=== PATIENT | female | born 1960 | race Caucasian/White ===

== ENCOUNTER 2016-08-07 21:07 | Emergency (ER) | payer SELFPAY ==
--- NOTE | 2016-08-07 21:32 | ER Document Report ---
ED Medical Screen (RME) - General Stated Complaint: CHEST PAIN Notes: Patient states she has been having intermittent chest pain all day, epigastric area is hurting, has nausea, and has a history of a gastric ulcer. Patient states she took (2) 150 mg Zantac which helped for only about 20 minutes. Zantac usually relieves the pain when her ulcer acts up. Pain is located under left breast. No other pain radiation. Patient has had a couple episodes of shortness of breath today. Father with DE at age 55 or 56. I have greeted and performed a rapid initial assessment of this patient. A comprehensive ED assessment and evaluation of the patient, analysis of test results and completion of the medical decision making process will be conducted by additional ED providers. TRAVEL OUTSIDE OF THE [place] IN LAST 30 DAYS: No - Related Data Allergies/Adverse Reactions: No Known Allergies Allergy (Verified 08/07/16 21:27) Past Medical History Neurological Medical History: Reports: Hx Migraine GI Medical History: Reports: Hx Gastroesophageal Reflux Disease, Hx Ulcer - gastric Past Surgical History: Reports: Hx Appendectomy - Immunizations Hx Diphtheria, Pertussis, Tetanus Vaccination: Yes Physical Exam - Vital signs Vitals: Temp Pulse Resp BP Pulse Ox 97.9 F 83 16 160/87 H 100 08/07/16 21:20 08/07/16 21:20 08/07/16 21:20 08/07/16 21:20 08/07/16 21:20 - Cardiovascular Rhythm: Regular Heart sounds: Normal auscultation Course - Vital Signs Vital signs: Temp Pulse Resp BP Pulse Ox 97.9 F 83 16 160/87 H 100 08/07/16 21:20 08/07/16 21:20 08/07/16 21:20 08/07/16 21:20 08/07/16 21:20
--- NOTE | 2016-08-07 21:59 | EKG REPORT ---
SEVERITY:- BORDERLINE ECG - SINUS RHYTHM PROBABLE LEFT ATRIAL ABNORMALITY : Confirmed by: Devorah Winter 07-Aug-2016 21:59:32
--- NOTE | 2016-08-07 23:13 | ER Document Report ---
ED General - General Chief Complaint: Chest Pain Stated Complaint: CHEST PAIN Notes: Patient is 56-year-old female presents with complaints of epigastric abdominal pain and recent or chest. She's had some nausea. She said she did vomit up some clear liquid. No blood or emesis. No blood in her stool. No black or tarry stools. Patient says she has a history of gastritis and ulcers. She says this pain feels exactly like her previous ulcer pain. She says that it's not atypical for her to have pain radiates into her chest from her epigastrium. She says the pain always starts in the epigastrium and radiates upwards. She denies any history of coronary disease. Her father did have MRIs. No she does smoke. She does not drink alcohol. She again says that this pain is exactly like her previous ulcer type pains. She says that she did take Zantac which initially helped but then the pain came back. No other complaints this time. TRAVEL OUTSIDE OF THE [place] IN LAST 30 DAYS: No - Related Data Allergies/Adverse Reactions: No Known Allergies Allergy (Verified 08/07/16 21:27) Past Medical History - Social History Smoking Status: Current Every Day Smoker Chew tobacco use (# tins/day): No Frequency of alcohol use: None Drug Abuse: None Family History: CAD, Other - RENAL FAILURE Neurological Medical History: Reports: Hx Migraine Renal/ Medical History: Denies: Hx Peritoneal Dialysis GI Medical History: Reports: Hx Gastroesophageal Reflux Disease, Hx Ulcer - gastric Past Surgical History: Reports: Hx Appendectomy - Immunizations Hx Diphtheria, Pertussis, Tetanus Vaccination: Yes Review of Systems - Review of Systems Notes: My Normal Review Basic REVIEW OF SYSTEMS: CONSTITUTIONAL : Denies fever, chills, or sweats. Denies recent illness. EENT: Denies eye, ear, throat, or mouth pain or symptoms. Denies nasal or sinus congestion. CARDIOVASCULAR: Pain radiating to chest from epigastric. RESPIRATORY: Denies cough, cold, or chest congestion. Denies shortness of breath, difficulty breathing, or wheezing. GASTROINTESTINAL: Epigastric abdominal pain. Vomiting 1 Denies constipation. Last BM: GENITOURINARY: Denies difficulty urinating, painful urination, burning, frequency, or blood in urine. FEMALE GENITOURINARY: Denies vaginal bleeding, abnormal or irregular periods. MUSCULOSKELETAL: Denies neck or back pain or joint pain or swelling. SKIN: Denies rash or skin lesions. HEMATOLOGIC : Denies easy bruising or bleeding. NEUROLOGICAL: Denies altered mental status or loss of consciousness. Denies headache. Denies weakness or paralysis or loss of use of either side. Denies problems with gait or speech. Denies sensory or motor loss. ALL OTHER SYSTEMS REVIEWED AND NEGATIVE. Physical Exam - Vital signs Vitals: Temp Pulse Resp BP Pulse Ox 97.9 F 83 16 160/87 H 100 08/07/16 21:20 08/07/16 21:20 08/07/16 21:20 08/07/16 21:20 08/07/16 21:20 - Notes Notes: General Appearance: Well nourished, alert, cooperative, no acute distress, mild to moderate obvious discomfort. Vitals: reviewed, See vital signs table. Head: no swelling or tenderness to the head Eyes: PERRL, EOMI, Conjuctiva clear Mouth: No decreasd moisture Neck: Supple, no neck tenderness, No thyromegaly Lungs: No wheezing, No rales, No rhonci, No accessory muscle use, good air exchange bilaterally. Heart: Normal rate, Regular rythm, No murmur, no rub Abdomen: Normal BS, soft, No rigidity, mild to moderate epigastric abdominal tenderness to palpation, No guarding, no rebound, no abdominal masses, no organomegaly Extremities: strength 5/5 in all extremities, good pulses in all extremities, no swelling or tenderness in the extremities, no edema. Skin: warm, dry, appropriate color, no rash Neuro: speech clear, oriented x 3, normal affect, responds appropriately to questions. Course - Vital Signs Vital signs: Temp Pulse Resp BP Pulse Ox 97.9 F 83 17 133/72 H 94 08/07/16 21:20 08/07/16 21:20 08/08/16 01:00 08/08/16 01:00 08/08/16 01:00 - Laboratory Result Diagrams: 08/07/16 23:32 08/07/16 23:32 Laboratory results interpreted by me: 08/07/16 08/07/16 23:32 23:32 Chloride 108 H Urine Ketones 20 H Urine Blood SMALL H Ur Leukocyte Esterase LARGE H - EKG Interpretation by Me Additional EKG results interpreted by me: 08/07/16 23:12 EKG is reviewed and interpreted by me. EKG shows normal sinus rhythm with a rate of [address] segment elevation or depression. No ischemic T wave inversions. ID interval is slightly prolonged. QRS duration and QTC intervals are within normal range. Old EKG for comparison is from 11/23/2015. - Transfer of Care Notes: 08/08/16 01:25 Patient is feeling much improved. Her pain resolved with the GI cocktail. Her nausea and vomiting resolved the Zofran. Patient did have some pain radiating into her chest; however, I think coronary disease is unlikely being that the patient has had this pain multiple times with her epigastric pain and it has been treated to her gastric ulcers in the past. Also her pain was completely resolved with a GI cocktail. Her EKG and cardiac enzymes are negative. She does have risk factors for heart disease including age and smoking and therefore informed her she should still have a outpatient stress test performed. I will refer her to dance hall host/hostess. I will also refer her to GI physician for possible upper GI endoscopy. She strongly encouraged return to ER if she has recurrence of chest pain, worsening abdominal pain, vomiting blood , or she feels unwell. Patient agrees with plan will be discharged home. Dictation of this chart was performed using voice recognition software; therefore, there may be some unintended grammatical errors. Discharge - Discharge Clinical Impression: Epigastric pain Condition: Good Disposition: HOME, SELF-CARE Instructions: Family Physicians / Practices Additional Instructions: ABDOMINAL PAIN: There are many causes of abdominal pain. Pain can mean a serious problem requiring surgery (such as appendicitis). It can also be an innocent problem that goes away on its own (such as a viral infection). Often, time must pass to determine the cause of pain. The physician does not feel that hospitalization is necessary, at present. Things may change within the next 24 hours. Call the doctor or come back for re- examination if any problems occur, such as: (1) Pain that becomes more severe, steady, or becomes concentrated in one specific area. Also, pain that is more severe with movement or coughing. (2) Vomiting that persists or becomes more frequent. (3) Blood in the vomitus, urine, or bowel movements. Blood in the stool may have a tarry or black appearance. (4) Shaking chills or fever greater than 100 degrees F. (5) The abdomen becomes more distended or swollen. (6) Bowel movements cease. (7) Failure to improve as expected. NORMAL EXAM AND WORKUP: At this time, your examination and workup show no significant abnormality. No significant abnormal physical findings are noted. All laboratory, EKG, and imaging (x-ray) studies that were ordered show no significant abnormality. Although your examination and all studies that were ordered showed no significant abnormal finding, there are no examinations and no studies that are 100% accurate. There is always the possibility that some abnormality could exist and not be detected with physical examination or within the limits and capabilities of laboratory and other studies. You should return or follow up as you were instructed on your visit today for further evaluation if your symptoms do not resolve. ANTINAUSEA MEDICATION: You have been given a medication to suppress nausea and vomiting. This type of medication can be given as a shot, pill, or suppository. It will usually last for many hours. Pills and shots usually last six to eight hours, suppositories last about 12 hours. For the typical illness, only one or two doses of the medication may be necessary. Mild lightheadedness may occur. This type of medicine can cause drowsiness. Do not drive or operate dangerous machinery while under its influence. Do not mix with alcohol. See your doctor at once if you have muscle spasms or tightness, or uncontrollable motions (particularly of the neck, mouth, or jaw). Persistent vomiting or severe lightheadedness should also be evaluated by the physician. FOLLOW-UP CARE: If you have been referred to a physician for follow-up care, call the physician s office for an appointment as you were instructed or within the next two days. If you experience worsening or a significant change in your symptoms, notify the physician immediately or return to the Emergency Department at any time for re-evaluation. Currently your EKG and heart enzymes were negative for any signs that your symptoms could be coming from your heart. You symptoms seem very consistent with your history of gastritis and gastric ulcers. This being said, it is still very important you return to the ER immediately if you have recurrence of chest pain, chest pain located in a different region other than just above your upper abdomen, or if you feel unwell. Please follow closely with your primary care doctor for reevaluation. I will also give you a referral to the GI physician due to history of gastric ulcers. I also recommend you talking to your doctor about possible outpatient cardiac stress testing due to your age and history of smoking. I will also refer you to a dance hall host/hostess for this. Once again it is extremely important that you return to ER if you have any recurrence of chest pain. Prescriptions: Ondansetron [Zofran Odt 4 mg Tablet] 1 tab PO Q4H PRN #10 tab.rapdis PRN Reason: For Nausea/Vomiting Sucralfate [Carafate 1 gm Tablet] 1 gm PO ACHS #120 tablet Forms: Return to Work Referrals: CASA ACE MD [ACTIVE STAFF] - Follow up in 3-5 days GEMA CRAFT MD [ACTIVE STAFF] - 08/10/16
[2016-08-07] MEDS ORDERED: METOCLOPRAMIDE HCL ORAL SOLN 10 MG/10 ML UDCUP PO ONE (23:39)
[2016-08-07] MEDS ORDERED: MAG HYDROX/AL HYDROX/SIMETH SUSP 30 ML UDCUP PO ONE (23:39)
[2016-08-07] MEDS ORDERED: LIDOCAINE 2% VISCOUS SOLN 20 ML UDCUP PO ONE (23:39)
[2016-08-07 23:53] LABS: ABSOLUTE BASOPHILS # (AUTO) 0.1 10^3/uL (0.0-0.2); ABSOLUTE EOSINOPHILS # (AUTO) 0.4 10^3/uL (0.0-0.6); ABSOLUTE LYMPHOCYTES (AUTO) 2.9 10^3/uL (0.5-4.7); ABSOLUTE MONOCYTES (AUTO) 0.8 10^3/uL (0.1-1.4); ABSOLUTE NEUT (AUTO) 5.8 10^3/uL (1.7-8.2); APPEARANCE,URINE SLIGHTLY-CLOUDY; BASOPHILS % (AUTO) 1.3 % (0-2); BILIRUBIN,URINE NEGATIVE (NEGATIVE); EOSINOPHILS % (AUTO) 3.7 % (0-6); GLUCOSE, URINE NEGATIVE (NEGATIVE); HEMATOCRIT 40.3 % (36.0-47.0); HEMOGLOBIN 13.5 g/dL (12.0-15.5); HGB HCT DIFFERENCE 0.2; KETONES,URINE 20 mg/dL (NEGATIVE); LEUKOCYTE ESTERASE,URINE LARGE (NEGATIVE); MEAN CORPUSCULAR HEMOGLOBIN 32.3 pg (27.0-33.4); MEAN CORPUSCULAR HGB CONC 33.5 g/dL (32.0-36.0); MEAN CORPUSCULAR VOLUME 96 fl (80-97); MONOCYTES % (AUTO) 7.9 % (3-13); NITRITE,URINE NEGATIVE (NEGATIVE); PROTEIN,URINE NEGATIVE (NEGATIVE); RED BLOOD COUNT 4.19 10^6/uL (3.72-5.28); RED CELL DISTRIBUTION WIDTH 13.5 % (11.5-14.0); SEGMENTED NEUTROPHILS % (AUTO) 58.1 % (42-78); URINE SPECIFIC GRAVITY 1.024; UROBILINOGEN,URINE NEGATIVE mg/dL (<2.0); WHITE BLOOD COUNT 9.9 10^3/uL (4.0-10.5)
[2016-08-08 00:08] LABS: ALANINE AMINOTRANSFERASE 18 U/L (9-52); ALBUMIN 4.2 g/dL (3.5-5.0); ALKALINE PHOSPHATASE 71 U/L (38-126); ANION GAP 14 (5-19); ASPARTATE AMINO TRANSFERASE 15 U/L (14-36); BILIRUBIN,DIRECT 0.2 mg/dL (0.0-0.4); BILIRUBIN,TOTAL 0.3 mg/dL (0.2-1.3); BLOOD UREA NITROGEN 15 mg/dL (7-20); CALCIUM 10.1 mg/dL (8.4-10.2); CARBON DIOXIDE 23 mmol/L (22-30); CHLORIDE 108 mmol/L (98-107); CREATINE KINASE 66 U/L (30-135); CREATININE RESULT 0.65 mg/dL (0.52-1.25); GLUCOSE 90 mg/dL (75-110); POTASSIUM 3.8 mmol/L (3.6-5.0); SODIUM 144.9 mmol/L (137-145); TOTAL PROTEIN 7.3 g/dL (6.3-8.2)
[2016-08-08 00:20] LABS: CREATINE KINASE MB 0.22 ng/mL (<4.55)
[2016-08-08 00:24] LABS: TROPONIN I < 0.012 ng/mL
[2016-08-08] MEDS ORDERED: ONDANSETRON HCL INJ/PF 4 MG/2 ML SDV IV ONE (00:33)
[2016-08-08] MEDS ORDERED: ONDANSETRON ODT 4 MG TAB (6 TAB/DSPK) PO PRN (01:25)
[2016-08-08 02:17] VITALS: BP 129/74
== END 2016-08-08 02:15 | disposition home or self-care (01) ==
LOC: ER 21:07
DX: R10.13 Epigastric pain (principal); R11.2 Nausea with vomiting, unspecified; R07.9 Chest pain, unspecified; Z87.19 Personal history of other diseases of the digestive system; F17.200 Nicotine dependence, unspecified, uncomplicated; Z82.49 Family history of ischemic heart disease and other diseases of the circulatory system; Z87.11 Personal history of peptic ulcer disease; Z90.49 Acquired absence of other specified parts of digestive tract
CPT/HCPCS: 93005; 99285; 36415; 82553; 82550; 85025; 80053; 81001; 84484; 71010; 93010; J3490; J2405

== ENCOUNTER 2017-01-11 23:08 | Emergency (ER) | payer SELFPAY ==
[2017-01-11] MEDS ORDERED: IBUPROFEN 600 MG TABLET PO ONE (23:43)
[2017-01-11] MEDS ORDERED: ACETAMINOPHEN 325 MG TABLET PO ONE (23:43)
[2017-01-11] MEDS ORDERED: LIDOCAINE 5% (700 MG) TRANSDERMAL ADH..PATCH TP ONE (23:43)
--- NOTE | 2017-01-11 23:45 | ER Document Report ---
ED General - General Chief Complaint: Abdominal Pain Stated Complaint: ABDOMINAL PAIN Time Seen by Provider: 01/11/17 23:26 Notes: Patient is a 56 year old female without past medical history who presents with 3 days of left lower rib pain. Does describe it as a constant, stabbing, throbbing pain that is worsened by movement. States it started after she picked up a heavy suitcase 3 days ago. No history of similar injuries in the past. She has not tried heat and treat her pain. She has not seen her primary care doctor regarding today's concerns. She denies any associated dysuria, hematuria, focal abdominal pain, vomiting, diarrhea, chest pain or shortness of breath. No history of DVT or pulmonary embolus. She denies any pleuritic pain. She does not use estrogen of any kind. TRAVEL OUTSIDE OF THE [place] IN LAST 30 DAYS: No - Related Data Allergies/Adverse Reactions: No Known Allergies Allergy (Verified 08/07/16 21:27) Past Medical History - General Information source: Patient - Social History Smoking Status: Never Smoker Frequency of alcohol use: None Drug Abuse: None Family History: CAD, Other - RENAL FAILURE Patient has suicidal ideation: No Patient has homicidal ideation: No Neurological Medical History: Reports: Hx Migraine Renal/ Medical History: Denies: Hx Peritoneal Dialysis GI Medical History: Reports: Hx Gastroesophageal Reflux Disease, Hx Ulcer - gastric Past Surgical History: Reports: Hx Appendectomy - Immunizations Hx Diphtheria, Pertussis, Tetanus Vaccination: Yes Review of Systems - Review of Systems Notes: Constitutional: Negative for fever. HENT: Negative for sore throat. Eyes: Negative for visual changes. Cardiovascular: Negative for chest pain. Respiratory: Negative for shortness of breath. Gastrointestinal: Negative for abdominal pain, vomiting or diarrhea. Genitourinary: Negative for dysuria. Musculoskeletal: Positive for left lower rib pain Skin: Negative for rash. Neurological: Negative for headaches, weakness or numbness. 10 point ROS negative except as marked above and in HPI. Physical Exam - Vital signs Vitals: Temp Pulse Resp BP Pulse Ox 97.7 F 75 18 151/78 H 97 01/11/17 23:13 01/11/17 23:13 01/11/17 23:13 01/11/17 23:13 01/11/17 23:13 Interpretation: Hypertensive Notes: PHYSICAL EXAMINATION: GENERAL: Well-appearing, well-nourished and in no acute distress. HEAD: Atraumatic, normocephalic. EYES: Pupils equal round and reactive to light, extraocular movements intact, sclera anicteric, conjunctiva are normal. ENT: nares patent, oropharynx clear without exudates. Moist mucous membranes. NECK: Normal range of motion, supple without lymphadenopathy LUNGS: Breath sounds clear to auscultation bilaterally and equal. No wheezes rales or rhonchi. HEART: Regular rate and rhythm without murmurs Chest wall: Pain on palpation of the left lower ribs along the lateral and posterior aspect of the rib cage ABDOMEN: Soft, nontender, normoactive bowel sounds. No guarding, no rebound. No masses appreciated. Mild bilateral CVA tenderness. EXTREMITIES: Normal range of motion, no pitting or edema. No cyanosis. NEUROLOGICAL: No focal neurological deficits. Moves all extremities spontaneously and on command. PSYCH: Normal mood, normal affect. SKIN: Warm, Dry, normal turgor, no rashes or lesions noted. Course - Re-evaluation Re-evalutation: 01/11/17 23:44 Patient presents with 4 days of focal left lower rib pain. The pain is worsened by movement. He does also reproduce on exam by direct palpation. Patient states that this did start after she lifted a heavy suitcase. She has absolutely no abdominal tenderness and denies any symptoms to suggest an acute intra-abdominal pathology. No right lower quadrant, right upper quadrant or left lower quadrant tenderness. No rebound or guarding. She denies any pleuritic pain, hemoptysis, use of estrogen, or history of DVT or pulmonary embolus. Her well's score is 0. I do not believe her clinical history is consistent with a acute pulmonary embolus and do not believe I should pursue a d -dimer test or CTA of the chest at this time. Will obtain a chest x-ray, urinalysis given the patient does have some mild bilateral flank tenderness on palpation and pyelonephritis could also give this presentation. 01/12/17 01:04 Patient has had complete resolution of her pain after application of a lidocaine patch and providing ibuprofen. Her urinalysis does show findings of possible pyelonephritis although is contaminated. A urine culture has been sent. She will be started on cephalexin for 7 day course. Will also prescribe Lidoderm patches and I have recommended Tylenol and ibuprofen for pain control. At this time will discharge with return precautions and follow-up recommendations. Verbal discharge instructions given a the bedside and opportunity for questions given. Medication warnings reviewed. Patient is in agreement with this plan and has verbalized understanding of return precautions and the need for primary care follow-up in the next 24-72 hours. - Vital Signs Vital signs: Temp Pulse Resp BP Pulse Ox 97.9 F 72 16 140/76 H 98 01/12/17 01:35 01/12/17 01:35 01/12/17 01:35 01/12/17 01:35 01/12/17 01:35 - Laboratory Laboratory results interpreted by me: 01/11/17 23:50 Urine Blood SMALL H Ur Leukocyte Esterase LARGE H - Diagnostic Test Radiology reviewed: Image reviewed, Reports reviewed Radiology results interpreted by me: 01/12/17 01:04 Chest x-ray: No acute infiltrate or pneumothorax Discharge - Discharge Clinical Impression: Rib pain Urinary tract infection Qualifiers: Urinary tract infection type: site unspecified Hematuria presence: without hematuria Qualified Code(s): N39.0 - Urinary tract infection, site not specified Condition: Good Disposition: HOME, SELF-CARE Additional Instructions: Your pain is likely coming from musculoskeletal strain in your lower left ribs. However, your urine does show findings consistent with a urinary tract infection so you are also been started on antibiotics as this could also be contributing to the pain in your flanks. For your pain: Take ibuprofen 600 mg and acetaminophen 1000 mg every 6 hours together as needed for pain. You can also apply over the counter lidocaine to the affected areas. Return if you develop shortness of breath, worsening pain, fever greater than 101F, persistent vomiting, or any other symptoms that are worrisome to you. Prescriptions: Cephalexin Monohydrate [Keflex 500 mg Capsule] 500 mg PO QID #28 capsule Lidocaine [Lidoderm 5% (700 mg) Transdermal Patch] 1 patch TP DAILY #10 adh..patch
[2017-01-12 00:14] LABS: APPEARANCE,URINE SLIGHTLY-CLOUDY; BILIRUBIN,URINE NEGATIVE (NEGATIVE); GLUCOSE, URINE NEGATIVE (NEGATIVE); KETONES,URINE NEGATIVE (NEGATIVE); LEUKOCYTE ESTERASE,URINE LARGE (NEGATIVE); NITRITE,URINE NEGATIVE (NEGATIVE); PROTEIN,URINE NEGATIVE (NEGATIVE); URINE SPECIFIC GRAVITY 1.012; UROBILINOGEN,URINE NEGATIVE mg/dL (<2.0)
[2017-01-12] MEDS ORDERED: CEPHALEXIN 500 MG CAPSULE PO ONE (00:29)
--- NOTE | 2017-01-12 00:57 | RADIOLOGY REPORT (SQ) ---
EXAM DESCRIPTION: CHEST PA/LAT COMPLETED DATE/TIME: 01/12/2017 12:31 am REASON FOR STUDY: sob, left lower rib pain COMPARISON: Chest x-ray 08/07/2016. EXAM PARAMETERS: NUMBER OF VIEWS: two views TECHNIQUE: Digital Frontal and Lateral radiographic views of the chest acquired. RADIATION DOSE: NA LIMITATIONS: none FINDINGS: LUNGS AND PLEURA: No consolidation, pneumothorax or pleural effusion. MEDIASTINUM AND HILAR STRUCTURES: No masses or contour abnormalities. HEART AND VASCULAR STRUCTURES: Heart normal size. No evidence for failure. BONES: There is thoracolumbar scoliosis. HARDWARE: None in the chest. IMPRESSION: No acute radiographic finding in the chest. TECHNICAL DOCUMENTATION: JOB ID: [id number] [employer]- All Rights Reserved
[2017-01-12 01:36] VITALS: BP 140/76
== END 2017-01-12 01:37 | disposition home or self-care (01) ==
LOC: ER 23:08
DX: R07.81 Pleurodynia (principal); X50.0XXA Overexertion from strenuous movement or load, initial encounter; N39.0 Urinary tract infection, site not specified
CPT/HCPCS: 36415; 71020; 81001; 87086; 99284

== ENCOUNTER 2017-02-01 20:29 | Emergency (ER) | payer SELFPAY ==
--- NOTE | 2017-02-01 23:32 | ER Document Report ---
ED GI/ - General Mode of Arrival: Ambulatory Information source: Patient TRAVEL OUTSIDE OF THE [place] IN LAST 30 DAYS: No - HPI Patient complains to provider of: Abdominal pain Associated symptoms: Nausea, Other - headache <LULA ORONA - Last Filed: 02/02/17 00:40> <ARTURODESIRE - Last Filed: 02/02/17 01:24> - General Chief Complaint: GERD Stated Complaint: ABDOMINAL PAIN Time Seen by Provider: 02/01/17 23:23 Notes: Patient is a 56 year old female presenting to the emergency department for abdominal pain onset yesterday. Patient states she has a history of GERD and has been taking her Zantac with no relief. Patient also complains of nausea and headache. Patient does not take any other medications for her GERD. Patient states her abdominal pain is in her epigastric region. Patient has been seen previously in this facility and had had previous diagnoses of UTIs. (LULA ORONA) - Related Data Allergies/Adverse Reactions: No Known Allergies Allergy (Verified 08/07/16 21:27) Past Medical History - General Information source: Patient - Social History Smoking Status: Current Every Day Smoker Cigarette use (# per day): Yes - 1/2 ppd Chew tobacco use (# tins/day): No Smoking Education Provided: Yes Frequency of alcohol use: None Drug Abuse: None Family History: CAD, Other - RENAL FAILURE Patient has suicidal ideation: No Patient has homicidal ideation: No Neurological Medical History: Reports: Hx Migraine GI Medical History: Reports: Hx Gastroesophageal Reflux Disease, Hx Ulcer - gastric Past Surgical History: Reports: Hx Appendectomy - Immunizations Hx Diphtheria, Pertussis, Tetanus Vaccination: Yes <LULA ORONA - Last Filed: 02/02/17 00:40> Review of Systems - Review of Systems Constitutional: No symptoms reported EENT: No symptoms reported Cardiovascular: No symptoms reported Respiratory: No symptoms reported Gastrointestinal: See HPI, Abdominal pain, Nausea Genitourinary: No symptoms reported Female Genitourinary: No symptoms reported Musculoskeletal: No symptoms reported Skin: No symptoms reported Hematologic/Lymphatic: No symptoms reported Neurological/Psychological: See HPI, Headaches -: Yes All other systems reviewed and negative <LULA ORONA - Last Filed: 02/02/17 00:40> Physical Exam - Vital signs Interpretation: Normal <LULA ORONA - Last Filed: 02/02/17 00:40> <DESIRE MORRIS - Last Filed: 02/02/17 01:24> - Vital signs Vitals: Temp Pulse Resp BP Pulse Ox 97.4 F 90 18 110/86 H 99 02/01/17 20:51 02/01/17 20:51 02/01/17 20:51 02/01/17 20:51 02/01/17 20:51 - Notes Notes: GENERAL: Alert, interacts well, sleeping but easily arousable. Mild distress. HEAD: Normocephalic, atraumatic. EYES: Appear normal. Pupils equal, round, and reactive to light. ENT: Moist mucus membranes, tongue midline. NECK: Full range of motion. Supple. Trachea midline. LUNGS: Coarse lung sounds, no wheezes, rales, or rhonchi. No respiratory distress. HEART: Regular rate and rhythm. No murmurs, gallops, or rubs. ABDOMEN: Soft, epigastric tenderness with palpation. Non-distended. Normal bowel sounds. EXTREMITIES: Moves all 4 extremities spontaneously. Normal strength. No edema. NEUROLOGICAL: Alert and oriented x3. Normal speech. No focal neurological deficits. GCS 15. PSYCH: Normal affect, normal mood. SKIN: Warm, dry, normal turgor. No rashes or lesions noted. (LULA ORONA) Course - Laboratory Result Diagrams: 02/01/17 23:35 02/01/17 23:35 <LULA ORONA - Last Filed: 02/02/17 00:40> - Laboratory Result Diagrams: 02/01/17 23:35 02/01/17 23:35 <DESIRE MORRIS - Last Filed: 02/02/17 01:24> - Re-evaluation Re-evalutation: 02/02/17 01:19 The patient reports that her epigastric abdominal pain is much better after GI cocktail. Laboratory workup is unremarkable other than a urine showing large ketones, 131 WBCs and 1+ bacteria with large leukocyte esterase. On 01/11/2017 the patient had a similar appearing urine that was cultured and had no growth reported. For this reason antibiotics will not be given at this time. The urine will be cultured. She is encouraged to add Prilosec OTC, bland diet, elevate head of the bed, antiacids as needed for discomfort. (DESIRE MORRIS) - Vital Signs Vital signs: Temp Pulse Resp BP Pulse Ox 97.4 F 90 18 110/86 H 99 02/01/17 20:51 02/01/17 20:51 02/01/17 20:51 02/01/17 20:51 02/01/17 20:51 - Laboratory Laboratory results interpreted by me: 02/01/17 02/02/17 23:35 00:30 Carbon Dioxide 19 L Urine Protein 30 H Urine Ketones 80 H Urine Blood SMALL H Ur Leukocyte Esterase LARGE H Discharge <LULA ORONA - Last Filed: 02/02/17 00:40> <DESIRE MORRIS - Last Filed: 02/02/17 01:24> - Discharge Clinical Impression: Pyuria Gastroesophageal reflux disease Qualifiers: Esophagitis presence: esophagitis presence not specified Qualified Code(s): K21.9 - Gastro-esophageal reflux disease without esophagitis Condition: Stable Disposition: HOME, SELF-CARE Additional Instructions: Reflux Disease (GERD): Gastro-Esophageal Reflux Disease (GERD) is caused by stomach acid refluxing back up into the esophagus. The valve at the end of the esophagus may be weak. This is common in persons with a hiatal hernia. GERD symptoms can include indigestion, chest pain, heartburn, or food "sticking." Certain foods, alcohol, and aspirin can make GERD worse. Treatment depends on the severity. Usually, antacids or acid-suppressing medicines are used. When the esophagus is acutely inflamed, the physician will often prescribe membrane-protective drugs such as Carafate. Some patients benefit from medication such as Reglan that tightens the valve at the top of the stomach. Avoid those foods that bring on your symptoms. For many people, these foods are coffee, chocolate, onions, garlic, and carbonated drinks. Don't use alcohol, aspirin, caffeine, or tobacco. Don't eat late at night -- within 4 hours of bedtime. Don't over-eat. If necessary, elevate the head of your bed about 4 inches so that stomach acid will not roll up into your esophagus. Call the doctor if you develop severe chest pain, inability to swallow fluids, fever, or worsening symptoms. //////////////////////////////////////////////////////////////////////////////// //////////////////////////////////////////////////////////////////////////////// ////////////////// Eat a bland diet. Take the generic version of Prilosec OTC on a daily basis. Take antacids between meals and at bedtime. Elevate the head of your bed. Do not eat late in the evening or within a few hours of laying down. Your urine had quite a lot of pus cells in it suggesting urinary tract infection. 3 weeks ago you had a similar appearing urine that had no growth on the culture, so this urine will be cultured and decisional antibiotics will be made after the culture results come back. Be sure the hospital has a good contact number for you in case the culture indicates that you need to take an antibiotic. Follow-up with local medical doctor if not improving. RETURN TO THE EMERGENCY ROOM IF ANY NEW OR WORSENING SYMPTOMS. Scribe Attestation: 02/02/17 01:24 I personally performed the services described in the documentation, reviewed and edited the documentation which was dictated to the scribe in my presence, and it accurately records my words and actions. (DESIRE MORRIS) Scribe Documentation - Scribe Written by Florentino:: Florentino Beard 02/02/2017 00:35 acting as scribe for :: Arturo <LULA ORONA - Last Filed: 02/02/17 00:40>
[2017-02-01] MEDS ORDERED: LIDOCAINE 2% VISCOUS SOLN 20 ML UDCUP PO ONE (23:33)
[2017-02-01] MEDS ORDERED: MAG HYDROX/AL HYDROX/SIMETH SUSP 30 ML UDCUP PO ONE (23:33)
[2017-02-01 23:50] LABS: ABSOLUTE BASOPHILS # (AUTO) 0.1 10^3/uL (0.0-0.2); ABSOLUTE EOSINOPHILS # (AUTO) 0.3 10^3/uL (0.0-0.6); ABSOLUTE LYMPHOCYTES (AUTO) 2.3 10^3/uL (0.5-4.7); ABSOLUTE MONOCYTES (AUTO) 0.8 10^3/uL (0.1-1.4); ABSOLUTE NEUT (AUTO) 5.4 10^3/uL (1.7-8.2); BASOPHILS % (AUTO) 1.3 % (0-2); EOSINOPHILS % (AUTO) 3.3 % (0-6); HEMATOCRIT 38.7 % (36.0-47.0); HEMOGLOBIN 13.2 g/dL (12.0-15.5); HGB HCT DIFFERENCE 0.9; LYMPHOCYTES % (AUTO) 25.9 % (13-45); MEAN CORPUSCULAR HGB CONC 34.2 g/dL (32.0-36.0); MEAN CORPUSCULAR VOLUME 96 fl (80-97); RED BLOOD COUNT 4.01 10^6/uL (3.72-5.28); SEGMENTED NEUTROPHILS % (AUTO) 60.5 % (42-78); WHITE BLOOD COUNT 8.8 10^3/uL (4.0-10.5)
[2017-02-01 23:57] LABS: ALANINE AMINOTRANSFERASE 18 U/L (9-52); ALBUMIN 4.1 g/dL (3.5-5.0); ALKALINE PHOSPHATASE 63 U/L (38-126); ANION GAP 15 (5-19); ASPARTATE AMINO TRANSFERASE 18 U/L (14-36); BILIRUBIN,DIRECT 0.4 mg/dL (0.0-0.4); BILIRUBIN,TOTAL 0.4 mg/dL (0.2-1.3); BLOOD UREA NITROGEN 20 mg/dL (7-20); CALCIUM 9.8 mg/dL (8.4-10.2); CARBON DIOXIDE 19 mmol/L (22-30); CHLORIDE 107 mmol/L (98-107); CREATININE RESULT 0.76 mg/dL (0.52-1.25); GLUCOSE 95 mg/dL (75-110); SODIUM 141.2 mmol/L (137-145)
[2017-02-01 23:58] LABS: POTASSIUM 3.8 mmol/L (3.6-5.0)
[2017-02-02 00:18] LABS: ADD ON TESTING BLD IN LAB ACKNOWLEDGE
[2017-02-02 00:38] LABS: LIPASE 146.4 U/L (23-300)
[2017-02-02 00:49] LABS: APPEARANCE,URINE CLOUDY; BILIRUBIN,URINE NEGATIVE (NEGATIVE); GLUCOSE, URINE NEGATIVE (NEGATIVE); KETONES,URINE 80 mg/dL (NEGATIVE); LEUKOCYTE ESTERASE,URINE LARGE (NEGATIVE); NITRITE,URINE NEGATIVE (NEGATIVE); PROTEIN,URINE 30 mg/dL (NEGATIVE); URINE SPECIFIC GRAVITY 1.023; UROBILINOGEN,URINE NEGATIVE mg/dL (<2.0)
[2017-02-02 01:23] VITALS: BP 112/68
== END 2017-02-02 01:22 | disposition home or self-care (01) ==
LOC: ER 20:29
DX: N39.0 Urinary tract infection, site not specified (principal); K21.9 Gastro-esophageal reflux disease without esophagitis; Z79.899 Other long term (current) drug therapy; R11.0 Nausea; R51 Headache; F17.210 Nicotine dependence, cigarettes, uncomplicated
CPT/HCPCS: 99284; 36415; 87086; 83690; 85025; 87088; 80053; 81001; J3490

== ENCOUNTER 2017-08-29 01:11 | Emergency (ER) | payer SELFPAY ==
[2017-08-29] MEDS ORDERED: MAG HYDROX/AL HYDROX/SIMETH SUSP 30 ML UDCUP PO ONE (01:43)
[2017-08-29] MEDS ORDERED: METOCLOPRAMIDE HCL ORAL SOLN 10 MG/10 ML UDCUP PO ONE (01:43)
[2017-08-29] MEDS ORDERED: LIDOCAINE 2% VISCOUS SOLN 20 ML UDCUP PO ONE (01:43)
[2017-08-29] MEDS ORDERED: FAMOTIDINE 20 MG TABLET PO ONE (01:43)
--- NOTE | 2017-08-29 01:44 | ER Document Report ---
ED General - General Chief Complaint: Abdominal Pain Stated Complaint: ABDOMINAL CRAMPS Time Seen by Provider: 08/29/17 01:17 Notes: Patient is a 57-year-old female with a past medical history of recurrent abdominal pain, gastritis, prior appendectomy who presents with 6 hours of generalized abdominal discomfort and cramping with associated nausea and vomiting. Patient states that her symptoms started shortly after eating but she is only 1 sick. She notes that nothing seems to improve or worsen her symptoms since they have started. She has a history of similar sometimes many times to her gastritis per her report. She denies any diarrhea, fever, dysuria or flank tenderness. She has not seen her primary doctor regarding today's concerns. TRAVEL OUTSIDE OF THE [place] IN LAST 30 DAYS: No - HPI Onset: Just prior to arrival Onset/Duration: Gradual Quality of pain: Cramping Severity: Moderate Pain Level: 2 Associated symptoms: Vomiting Exacerbated by: Denies Relieved by: Denies Similar symptoms previously: Yes Recently seen / treated by doctor: No - Related Data Allergies/Adverse Reactions: No Known Allergies Allergy (Verified 08/07/16 21:27) Past Medical History - General Information source: Patient - Social History Smoking Status: Current Every Day Smoker Chew tobacco use (# tins/day): No Frequency of alcohol use: None Drug Abuse: None Lives with: Alone Family History: CAD, Other - RENAL FAILURE Patient has suicidal ideation: No Patient has homicidal ideation: No Neurological Medical History: Reports: Hx Migraine Renal/ Medical History: Denies: Hx Peritoneal Dialysis GI Medical History: Reports: Hx Gastroesophageal Reflux Disease, Hx Ulcer - gastric Past Surgical History: Reports: Hx Appendectomy - Immunizations Hx Diphtheria, Pertussis, Tetanus Vaccination: Yes Review of Systems - Review of Systems Notes: Constitutional: Negative for fever. HENT: Negative for sore throat. Eyes: Negative for visual changes. Cardiovascular: Negative for chest pain. Respiratory: Negative for shortness of breath. Gastrointestinal: Positive for abdominal pain and vomiting Genitourinary: Negative for dysuria. Musculoskeletal: Negative for back pain. Skin: Negative for rash. Neurological: Negative for headaches, weakness or numbness. 10 point ROS negative except as marked above and in HPI. Physical Exam - Vital signs Vitals: Temp Pulse Resp BP Pulse Ox 97.3 F 66 16 152/80 H 100 08/29/17 01:23 08/29/17 01:23 08/29/17 01:23 08/29/17 01:23 08/29/17 01:23 Interpretation: Hypertensive Notes: PHYSICAL EXAMINATION: GENERAL: Well-appearing, well-nourished and in no acute distress. HEAD: Atraumatic, normocephalic. EYES: Pupils equal round and reactive to light, extraocular movements intact, sclera anicteric, conjunctiva are normal. ENT: nares patent, oropharynx clear without exudates. Moist mucous membranes. NECK: Normal range of motion, supple without lymphadenopathy LUNGS: Breath sounds clear to auscultation bilaterally and equal. No wheezes rales or rhonchi. HEART: Regular rate and rhythm without murmurs ABDOMEN: Soft, nontender, normoactive bowel sounds. No guarding, no rebound. No masses appreciated. EXTREMITIES: Normal range of motion, no pitting or edema. No cyanosis. NEUROLOGICAL: No focal neurological deficits. Moves all extremities spontaneously and on command. PSYCH: Normal mood, normal affect. SKIN: Warm, Dry, normal turgor, no rashes or lesions noted. Course - Re-evaluation Re-evalutation: 08/29/17 01:43 Patient presents with epigastric abdominal pain with associated reflux symptoms most consistent with likely gastritis. Patient has no focal abdominal tenderness on examination. Lipase is normal. No LFT changes. Based on history and exam, I do not suspect ACS, pulmonary embolus, SBO, mesenteric ischemia, acute pancreatitis, biliary pathology, or an abdominal aortic dissection. Patient has had improvement of symptoms here with a GI cocktail. At this time will discharge with return precautions and follow-up recommendations. Verbal discharge instructions given a the bedside and opportunity for questions given. Medication warnings reviewed. Patient is in agreement with this plan and has verbalized understanding of return precautions and the need for primary care follow-up in the next 24-72 hours. - Vital Signs Vital signs: Temp Pulse Resp BP Pulse Ox 97.3 F 66 16 152/80 H 100 08/29/17 01:23 08/29/17 01:23 08/29/17 01:23 08/29/17 01:23 08/29/17 01:23 - Laboratory Result Diagrams: 08/29/17 01:30 08/29/17 01:30 Laboratory results interpreted by me: 08/29/17 08/29/17 08/29/17 01:30 01:30 01:30 RDW 14.1 H Seg Neutrophils % 40.8 L Monocytes % 14.8 H Eosinophils % 8.7 H Basophils % 2.3 H Sodium 149.1 H Chloride 111 H Total Bilirubin < 0.1 L Urine Blood SMALL H Discharge - Discharge Clinical Impression: Abdominal cramping Nausea and vomiting Qualifiers: Vomiting type: unspecified Vomiting Intractability: non-intractable Qualified Code(s): R11.2 - Nausea with vomiting, unspecified Condition: Good Disposition: HOME, SELF-CARE Additional Instructions: You have been seen in the Emergency Department (ED) for abdominal pain. Your evaluation did not identify a clear cause of your symptoms but was generally reassuring. Please follow up with your doctor as soon as possible regarding today's emergent visit and the symptoms that are bothering you. Return to the ED if your abdominal pain worsens or fails to improve, you develop bloody vomiting, bloody diarrhea, you are unable to tolerate fluids due to vomiting, fever greater than 101, or other symptoms that concern you. Prescriptions: Famotidine 40 mg PO BID #60 tablet
[2017-08-29 01:56] LABS: ABSOLUTE BASOPHILS # (AUTO) 0.1 10^3/uL (0.0-0.2); ABSOLUTE EOSINOPHILS # (AUTO) 0.5 10^3/uL (0.0-0.6); ABSOLUTE LYMPHOCYTES (AUTO) 1.9 10^3/uL (0.5-4.7); ABSOLUTE MONOCYTES (AUTO) 0.8 10^3/uL (0.1-1.4); ABSOLUTE NEUT (AUTO) 2.3 10^3/uL (1.7-8.2); BASOPHILS % (AUTO) 2.3 % (0-2); EOSINOPHILS % (AUTO) 8.7 % (0-6); HEMATOCRIT 37.4 % (36.0-47.0); HEMOGLOBIN 12.6 g/dL (12.0-15.5); LYMPHOCYTES % (AUTO) 33.4 % (13-45); MEAN CORPUSCULAR HEMOGLOBIN 32.7 pg (27.0-33.4); MEAN CORPUSCULAR HGB CONC 33.8 g/dL (32.0-36.0); MEAN CORPUSCULAR VOLUME 97 fl (80-97); MONOCYTES % (AUTO) 14.8 % (3-13); PLATELET COUNT 252 10^3/uL (150-450); RED BLOOD COUNT 3.87 10^6/uL (3.72-5.28); RED CELL DISTRIBUTION WIDTH 14.1 % (11.5-14.0); SEGMENTED NEUTROPHILS % (AUTO) 40.8 % (42-78); TOTAL CELLS COUNTED % (AUTO) 100 %; WHITE BLOOD COUNT 5.6 10^3/uL (4.0-10.5)
[2017-08-29 01:58] LABS: APPEARANCE,URINE CLEAR; BILIRUBIN,URINE NEGATIVE (NEGATIVE); COLOR,URINE STRAW; GLUCOSE, URINE NEGATIVE (NEGATIVE); KETONES,URINE NEGATIVE (NEGATIVE); LEUKOCYTE ESTERASE,URINE NEGATIVE (NEGATIVE); NITRITE,URINE NEGATIVE (NEGATIVE); PROTEIN,URINE NEGATIVE (NEGATIVE); URINE SPECIFIC GRAVITY 1.004; UROBILINOGEN,URINE NEGATIVE mg/dL (<2.0)
[2017-08-29 02:09] LABS: ALANINE AMINOTRANSFERASE 22 U/L (9-52); ALBUMIN 3.9 g/dL (3.5-5.0); ALKALINE PHOSPHATASE 67 U/L (38-126); ANION GAP 14 (5-19); ASPARTATE AMINO TRANSFERASE 27 U/L (14-36); BLOOD UREA NITROGEN 11 mg/dL (7-20); CALCIUM 9.5 mg/dL (8.4-10.2); CARBON DIOXIDE 24 mmol/L (22-30); CHLORIDE 111 mmol/L (98-107); GLUCOSE 89 mg/dL (75-110); LIPASE 74.2 U/L (23-300); POTASSIUM 4.2 mmol/L (3.6-5.0); SODIUM 149.1 mmol/L (137-145); TOTAL PROTEIN 6.9 g/dL (6.3-8.2)
[2017-08-29 02:15] LABS: BILIRUBIN,TOTAL < 0.1 mg/dL (0.2-1.3)
[2017-08-29] MEDS ORDERED: DICYCLOMINE HCL INJ 20 MG/2 ML AMPULE IM ONE (02:33)
[2017-08-29 03:02] VITALS: BP 152/85
== END 2017-08-29 03:02 | disposition home or self-care (01) ==
LOC: ER 01:11
DX: R10.13 Epigastric pain (principal); R11.2 Nausea with vomiting, unspecified; F17.200 Nicotine dependence, unspecified, uncomplicated; Z87.11 Personal history of peptic ulcer disease; Z90.49 Acquired absence of other specified parts of digestive tract; Z87.19 Personal history of other diseases of the digestive system
CPT/HCPCS: 99284; 96372; 36415; 83690; 85025; 80053; 81001; J0500; J3490

== ENCOUNTER 2018-11-22 19:14 | Emergency (ER) | payer SELFPAY ==
[2018-11-22 19:20] VITALS: BP 136/86
[2018-11-22] MEDS ORDERED: CYCLOBENZAPRINE HCL 10 MG TABLET PO ONE (19:40)
[2018-11-22] MEDS ORDERED: LIDOCAINE 5% (700 MG) TRANSDERMAL ADH..PATCH TP ONE (19:41)
--- NOTE | 2018-11-22 19:45 | ER Document Report ---
HPI - HPI Patient complains to provider of: neck pain Time Seen by Provider: 11/22/18 19:37 Onset: Other - 2 days Onset/Duration: Persistent Quality of pain: Achy Pain Level: 4 Context: Patient presents complaining of left-sided neck pain for the past 2 days. Patient denies any injury. Patient states sometimes she will have neck pain in this location. Patient without any fever or headache. No weakness to extremities. Associated Symptoms: Other - Left-sided neck pain. denies: Fever, Headache Exacerbated by: Movement Relieved by: Remaining still Similar symptoms previously: Yes Recently seen / treated by doctor: No - ROS ROS below otherwise negative: Yes Systems Reviewed and Negative: Yes All other systems reviewed and negative - CONSTITUTIONAL Constitutional: DENIES: Fever, Chills - NEURO Neurology: DENIES: Headache, Weakness - RESPIRATORY Respiratory: DENIES: Trouble Breathing - REPRODUCTIVE Reproductive: DENIES: : - MUSCULOSKELETAL Musculoskeletal: REPORTS: Neck Pain. DENIES: Back Pain - DERM Skin Color: Normal Skin Problems: None Past Medical History - General Information source: Patient - Social History Smoking Status: Current Every Day Smoker Smoking Education Provided: Yes Frequency of alcohol use: None Drug Abuse: None Occupation: None Lives with: Family Family History: CAD, Other - RENAL FAILURE Patient has suicidal ideation: No Patient has homicidal ideation: No Neurological Medical History: Reports: Hx Migraine Renal/ Medical History: Denies: Hx Peritoneal Dialysis GI Medical History: Reports: Hx Gastroesophageal Reflux Disease, Hx Ulcer - gastric Past Surgical History: Reports: Hx Appendectomy - Immunizations Hx Diphtheria, Pertussis, Tetanus Vaccination: Yes Vertical Provider Document - CONSTITUTIONAL Agree With Documented VS: Yes Exam Limitations: No Limitations General Appearance: WD/WN, No Apparent Distress - INFECTION CONTROL TRAVEL OUTSIDE OF THE [place] IN LAST 30 DAYS: No - HEENT HEENT: Atraumatic, Normocephalic - NECK Neck: Supple. negative: Lymphadenopathy-Left, Lymphadenopathy-Right Notes: Left trapezius muscle tenderness with spasm, no cervical midline tenderness step-off or deformity - RESPIRATORY Respiratory: Breath Sounds Normal, No Respiratory Distress - CARDIOVASCULAR Cardiovascular: Regular Rate, Regular Rhythm Pulses: Normal: Radial - BACK Back: Abnormal Inspection - Left trapezius muscle tenderness - MUSCULOSKELETAL/EXTREMETIES Musculoskeletal/Extremeties: NATALY VILLARREAL - NEURO Level of Consciousness: Awake, Alert, Appropriate Motor/Sensory: No Motor Deficit - DERM Integumentary: Warm, Dry, No Rash Course - Re-evaluation Re-evalutation: 11/22/18 19:44 Patient with left trapezius muscle tenderness with spasm. No fever, no history of injury, no history of IV drug use. No midline tenderness, no concern for fracture, meningitis or spinal epidural abscess. - Vital Signs Vital signs: Temp Pulse Resp BP Pulse Ox 97.9 F 87 16 136/86 H 97 11/22/18 19:19 11/22/18 19:19 11/22/18 19:19 11/22/18 19:19 11/22/18 19:19 Discharge - Discharge Clinical Impression: Trapezius muscle spasm Condition: Stable Disposition: HOME, SELF-CARE Instructions: Muscle Relaxers ([facility]), Muscle Strain ([facility]) Additional Instructions: Return immediately for any new or worsening symptoms Followup with your primary care provider, call tomorrow to make a followup appointment Prescriptions: Cyclobenzaprine HCl [Flexeril 10 Mg Tablet] 10 mg PO TID #15 tablet Lidocaine [Lidoderm 5% (700 mg) Transdermal Patch] 1 patch TP DAILY PRN #10 adh..patch PRN Reason: Naproxen [Naprosyn 250 Nmg Tablet] 1 tab PO BID #14 tablet Forms: Smoking Cessation Education Referrals: VANCE TRAMMELL MD [NO LOCAL MD] - Follow up as needed
== END 2018-11-22 19:48 | disposition home or self-care (01) ==
LOC: ER 19:14
DX: M62.830 Muscle spasm of back (principal); M54.2 Cervicalgia; F17.200 Nicotine dependence, unspecified, uncomplicated
CPT/HCPCS: 99283